=== PATIENT | female | born 1990 | race Caucasian/White ===

== ENCOUNTER 2017-03-08 04:08 | Emergency (ER) | payer OTHER ==
--- NOTE | 2017-03-08 06:39 | ED NURSING NOTES ---
Clinical Report - Nurses [facility] [address] [place] [address] 03/08/2017 4:09 Patient: SCOTT MCCAIN TRIAGE Triage time 04:16. Acuity: LEVEL 3. Chief Complaint: SHORTNESS OF BREATH and "ASTHMA ATTACK" and COUGH. 04:22. Alert. SEPSIS SCREEN: Sepsis Screen. Negative (no infection suspected/documented). --04:23 Rob Menjivar R.N. 04:16 03/08/17. BP: 134/82. HR: 94. RR: 18. O2 saturation: 94% on room air. Temp: 98.5 F (oral). Pain level now: 0/10. --04:23 Rob Menjivar R.N. Weight: 68 kg stated. Height/Length: 70 inches Per Patient. BMI: 21.5. --04:21 Rob Menjivar R.N. Medications Albuterol Sulfate Inhalation 1 unit dose, PRN. Ventolin HFA Inhalation 2 puffs, as needed. --04:19 Rob Menjivar R.N. Medication/allergy information source: the patient. --04:23 Rob Menjivar R.N. Allergies Bactrim. --04:19 Rob Menjivar R.N. History Arrived by private vehicle. Historian: patient. Accompanied by friend. Primary physician (None). Onset. (2 days ago). ( Patient reports difficulty breathing for the last 2 days with worsening this AM). 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 PAST MEDICAL HX: Immunizations: up-to-date. Last normal menstrual period was 2 weeks ago. SOCIAL HX: Former smoker. No alcohol use or drug use. No infectious disease exposure. ABUSE ASSESSMENT: No report of abuse. FALL RISK ASSESSMENT: Fall risk assessment completed. No fall risk identified. NUTRITIONAL RISK ASSESSMENT: The nutritional risk assessment revealed no deficiencies. FUNCTIONAL ASSESSMENT: Functional assessment: no impairments noted. LEARNING NEEDS ASSESSMENT: The learning needs assessment revealed no barriers. SKIN INTEGRITY ASSESSMENT: Skin integrity risk assessment completed. No skin integrity risk identified. --04:23 Rob Menjivar R.N. PROBLEMS: Asthma. --04:20 Rob Menjivar R.N. ADDITIONAL SURGERIES: Cholecystectomy. . --04:20 Rob Menjivar R.N. Interventions ID band on patient. To treatment room. --04:23 Rob Menjivar R.N. PHYSICAL ASSESSMENT 04:23. Ambulatory to room. GENERAL / NEURO / PSYCH: Alert. Oriented X 4. HEENT: Mucous membranes are pink. RESPIRATORY: Mild respiratory distress. The patient can speak in full sentences. Cough. Expiratory and inspiratory bilateral wheezes diffusely. SKIN: Skin is warm and dry. Normal skin turgor. --04:23 Rob Menjivar R.N. NURSING PROGRESS NOTES 04:23. Head of bed elevated. Two patient identifiers checked. Call light placed in reach. Bed placed in lowest position. Brakes of bed on. --04:23 Rob Menjivar R.N. 04:24 03/08/2017 Duoneb (Ipratropium-Albuterol) Neb TX 1 unit dose given. Given by the respiratory therapist. Allergies verified and confirmed 5 rights. --04:24 Rob Menjivar R.N. 04:24 RT with pt for eval and breathing treatment. --04:32 Rob Menjivar R.N. 04:51. Oxygen administered by nasal cannula at 2 liters (by Syed from RT). --05:01 Rob Menjivar R.N. 04:37 03/08/2017 Prednisone PO 40 mg given. Allergies verified and confirmed 5 rights. --05:02 Rob Menjivar R.N. 05:27 03/08/17. BP: 131/86. HR: 80. RR: 19. O2 saturation: 95% on nasal cannula at 2 liters/minute. --05:29 Rob Menjivar R.N. The patient is sleeping. SKIN: Skin is warm and dry. --05:29 Rob Menjivar R.N. 05:45 RT with pt for additional breathing treatment. --05:46 Rob Menjivar R.N. 05:46 03/08/2017 Albuterol Neb TX 2 unit dose given. Given by the respiratory therapist. Allergies verified and confirmed 5 rights. --05:48 Rob Menjivar R.N. 06:18. Patient transported to radiology by stretcher with tech. --06:18 Rob Menjivar R.N. 07:08. The patient is calm and resting quietly. RESPIRATORY: No respiratory distress. SKIN: Skin is warm and dry. Skin color within normal limits. --07:14 Rob Menjivar R.N. DISPOSITION / DISCHARGE <<STRICKEN ENTRY-- Condition at departure: improved and stable. No learning barriers present. Patient verbalized understanding. Written instructions provided in Polish. Transferred to [facility]. Patient's personal items include, Other belongings; items were placed in belongings bag and transported with the patient. She did not have glasses, contacts, dentures or a hearing aid. FALL RISK ASSESSMENT: Fall risk assessment completed. No fall risk identified. --06:35 Rob Menjivar R.N. --END STRIKE>> Charted On Wrong Patient --06:35 Rob Menjivar R.N. <<PSYCHIATRICKEN ENTRY-- 06:31 03/08/17. BP: 111/84. HR: 57. RR: 15. O2 saturation: 96% on nasal cannula at 2 liters/minute. Pain level now: 11/06. --06:35 Rob eMnjivar R.N. --END STRIKE>> Charted on wrong patient. --06:36 Rob Menjivar R.N. Departure time: 07:10. Condition at departure: improved and stable. ( Discharge instructions reviewed by Yancy GONZÁLES). No learning barriers present. Discharge instructions provided and reviewed with the patient. Patient verbalized understanding. Written instructions provided in Polish. The patient was discharged home and accompanied by parent. She left the Emergency Department ambulatory and via private vehicle. Family member driving. FALL RISK ASSESSMENT: Fall risk assessment completed. No fall risk identified. --07:14 Rob Menjivar R.N. 06:51 03/08/17. BP: 120/72. HR: 79. RR: 19. O2 saturation: 94% on room air. Pain level now: 010. --07:14 Rob Menjivar R.N. Locked/Released at 03/08/2017 7:14 by Rob Menjivar R.N.
--- NOTE | 2017-03-08 06:39 | ED CLINICAL REPORT ---
Clinical Report - Physicians/Mid Levels [facility] [address] [address] 03/08/2017 4:09 Patient: SCOTT MCCAIN Time Seen: 04:18; initial patient contact. Arrived- By private vehicle. Historian- patient. HISTORY OF PRESENT ILLNESS Chief Complaint: DYSPNEA and HISTORY OF ASTHMA. This started about 2 days ago and is still present (worse since a few hours ago). The dyspnea is described as moderate. She has not had worsening of dyspnea with walking or exertion. No improvement of dyspnea with rest. The patient has had a cough and wheezing. No sputum production, fever, sweating episodes or chills. No chest pain or discomfort, calf pain, foot swelling or anxiety. No palpitations. Similar symptoms previously: Many times. Recent medical care: The patient was seen recently at another facility in the emergency department. ( ~ 2 weeks ago for exacerbation). REVIEW OF SYSTEMS No nasal discharge, sinus drainage, nausea or vomiting. All systems otherwise negative, except as recorded above. PAST HISTORY Asthma. SURGERIES: Cholecystectomy. . SOCIAL HISTORY Former smoker. No alcohol use or drug use. ADDITIONAL NOTES The nursing notes have been reviewed. PHYSICAL EXAM Vital Signs: 03/08/2017 04:16 BP: 134/82. HR: 94. RR: 18. O2 saturation: 94%. Temp: 98.5 F. Pain level now: 0/10. Have been reviewed. Blood pressure normal. Heart rate normal. Respiratory rate normal. Temperature normal. Oxygen saturation low. Appearance: Alert. No acute distress. Eyes: Eyes normal inspection. ENT: Pharynx normal. Neck: Normal inspection. CVS: Normal heart rate and rhythm. Heart sounds normal. Respiratory: Mild respiratory distress with accessory muscle use and retractions. Mildly prolonged expirations. Mildly decreased air movement diffusely over both lungs. Expiratory moderate bilateral wheezes diffusely. Skin: Skin warm and dry. Normal skin color. No rash. Extremities: No calf tenderness. No lower extremity edema. Neuro: Oriented X 3. LABS, X-RAYS, AND EKG Chest X-ray: No acute disease. Normal lung markings present. Normal heart size. Mediastinum normal. Great vessels normal. No infiltrate. Views: PA and lateral. Technique: good. The X-rays were independently viewed by me and interpreted contemporaneously by me. Prior films were not available for comparison. PROGRESS AND PROCEDURES Course of Care: 03/08/2017 06:40 O2 saturation: 98%. Vital Signs: have been reviewed. Oxygen saturation normal. Disposition: Discharged home in good and improved condition. Condition: good. CLINICAL IMPRESSION Moderate persistent asthma with an acute exacerbation. No status asthmaticus, pneumonia, hypoxemia or acute respiratory failure. INSTRUCTIONS Avoid tobacco smoke. Your Current Medications: CONTINUE TAKING THE FOLLOWING MEDICATIONS: Albuterol Sulfate Inhalation : 1 unit dose PRN. Ventolin HFA Inhalation : 2 puffs, prn. Prescription Medications: Ventolin HFA oral inhaler: inhale 2 puffs every 4 hours as needed for wheezing, difficulty breathing or shortness of breath. No refill. Substitution is not permissible. Prednisone 10 mg tablets: take 4 tablets every day for 5 days ; then take 2 tablets every day for 3 days ; then take 1 tablet every day for 2 days. Dispense sufficient quantity. No refills. Follow-up: Follow up with your doctor in about two days. Call for an appointment. Screening today revealed the patient's blood pressure to be in the pre-hypertensive range. The patient should follow up with a primary care provider for blood pressure management. (Electronically signed by Varinder Caro Dr. 03/08/2017 6:42)
--- NOTE | 2017-03-08 06:39 | ED ORDER SUMMARY ---
..... Patient: SCOTT MCCAIN OrderSheet [facility] VisitID: [id number] [address] [place] [address] 26y, F Registration Date/Time: 03/08/2017 ORDER SHEET Weight: 68.0 kg (stated) Allergies: Bactrim GENERAL ORDERS: Chest 2V Urgent (06:07 03/08/2017 Massimo Lucio) (Ack 6:13 [facility] ER Offset Press Assistant) (6:23 RFay) MEDICATION ORDERS: DuoNeb Neb Tx 1 unit dose (NOW) (04:23 03/08/2017 Massimo Lucio) (4:24 JQuivey R.N.) Prednisone PO 40 mg (NOW) (04:23 03/08/2017 Massimo Lucio) (Ack 4:24 JQuivey R.N.) (5:02 JQuivey R.N.) Albuterol Neb Tx 2 unit doses (NOW, HHN) (05:47 03/08/2017 JQuivey R.N. verbal order read back to Massimo Lucio) (5:48 JQuivey R.N.) Albuterol Neb Tx 5 mg (NOW) (05:47 03/08/2017 Massimo Lucio) (Cancelled: Physician Order5:47 Massimo Lucio) IV FLUIDS: ORDER SHEET NOTES: [Electronically signed by Varinder Caro Dr. (06:42 03/08/2017)] [Electronically signed by Rob Menjviar R.N. (07:14 03/08/2017)] [Electronically locked/signed by Rob Menjivar R.N. (07:14 03/08/2017)]
--- NOTE | 2017-03-08 06:39 | ED ORDER SUMMARY ---
..... Patient: SCOTT MCCAIN OrderSheet [facility] VisitID: [id number] [address] [place] [address] 26y, F Registration Date/Time: 03/08/2017 ORDER SHEET Weight: 68.0 kg (stated) Allergies: Bactrim GENERAL ORDERS: Chest 2V Urgent (06:07 03/08/2017 Massimo Lucio) (Ack 6:13 [facility] ER Senior Bi Architect) (6:23 RFay) MEDICATION ORDERS: DuoNeb Neb Tx 1 unit dose (NOW) (04:23 03/08/2017 Massimo Lucio) (4:24 JQuivey R.N.) Prednisone PO 40 mg (NOW) (04:23 03/08/2017 Massimo Lucio) (Ack 4:24 JQuivey R.N.) (5:02 JQuivey R.N.) Albuterol Neb Tx 2 unit doses (NOW, HHN) (05:47 03/08/2017 JQuivey R.N. verbal order read back to Massimo Lucio) (5:48 JQuivey R.N.) Albuterol Neb Tx 5 mg (NOW) (05:47 03/08/2017 Massimo Lucio) (Cancelled: Physician Order5:47 Massimo Lucio) IV FLUIDS: ORDER SHEET NOTES: [Electronically signed by Varinder Caro Dr. (06:42 03/08/2017)] [Electronically signed by Rob Menjivar R.N. (07:14 03/08/2017)] [Electronically locked/signed by Rob Menjivar R.N. (07:14 03/08/2017)]
--- NOTE | 2017-03-08 06:39 | ED NURSING NOTES ---
Clinical Report - Nurses [facility] [address] [place] [address] 03/08/2017 4:09 Patient: SCOTT MCCAIN TRIAGE Triage time 04:16. Acuity: LEVEL 3. Chief Complaint: SHORTNESS OF BREATH and "ASTHMA ATTACK" and COUGH. 04:22. Alert. SEPSIS SCREEN: Sepsis Screen. Negative (no infection suspected/documented). --04:23 Rob Menjivar R.N. 04:16 03/08/17. BP: 134/82. HR: 94. RR: 18. O2 saturation: 94% on room air. Temp: 98.5 F (oral). Pain level now: 0/10. --04:23 Rob Menjivar R.N. Weight: 68 kg stated. Height/Length: 70 inches Per Patient. BMI: 21.5. --04:21 Rob Menjivar R.N. Medications Albuterol Sulfate Inhalation 1 unit dose, PRN. Ventolin HFA Inhalation 2 puffs, as needed. --04:19 Rob Menjivar R.N. Medication/allergy information source: the patient. --04:23 Rob Menjivar R.N. Allergies Bactrim. --04:19 Rob Menjivar R.N. History Arrived by private vehicle. Historian: patient. Accompanied by friend. Primary physician (None). Onset. (2 days ago). ( Patient reports difficulty breathing for the last 2 days with worsening this AM). 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 PAST MEDICAL HX: Immunizations: up-to-date. Last normal menstrual period was 2 weeks ago. SOCIAL HX: Former smoker. No alcohol use or drug use. No infectious disease exposure. ABUSE ASSESSMENT: No report of abuse. FALL RISK ASSESSMENT: Fall risk assessment completed. No fall risk identified. NUTRITIONAL RISK ASSESSMENT: The nutritional risk assessment revealed no deficiencies. FUNCTIONAL ASSESSMENT: Functional assessment: no impairments noted. LEARNING NEEDS ASSESSMENT: The learning needs assessment revealed no barriers. SKIN INTEGRITY ASSESSMENT: Skin integrity risk assessment completed. No skin integrity risk identified. --04:23 Rob Menjivar R.N. PROBLEMS: Asthma. --04:20 Rob Menjivar R.N. ADDITIONAL SURGERIES: Cholecystectomy. . --04:20 Rob Menjivar R.N. Interventions ID band on patient. To treatment room. --04:23 Rob Menjivar R.N. PHYSICAL ASSESSMENT 04:23. Ambulatory to room. GENERAL / NEURO / PSYCH: Alert. Oriented X 4. HEENT: Mucous membranes are pink. RESPIRATORY: Mild respiratory distress. The patient can speak in full sentences. Cough. Expiratory and inspiratory bilateral wheezes diffusely. SKIN: Skin is warm and dry. Normal skin turgor. --04:23 Rob Menjivar R.N. NURSING PROGRESS NOTES 04:23. Head of bed elevated. Two patient identifiers checked. Call light placed in reach. Bed placed in lowest position. Brakes of bed on. --04:23 Rob Menjivar R.N. 04:24 03/08/2017 Duoneb (Ipratropium-Albuterol) Neb TX 1 unit dose given. Given by the respiratory therapist. Allergies verified and confirmed 5 rights. --04:24 Rob Menjivar R.N. 04:24 RT with pt for eval and breathing treatment. --04:32 Rob Menjivar R.N. 04:51. Oxygen administered by nasal cannula at 2 liters (by Syed from RT). --05:01 Rob Menjivar R.N. 04:37 03/08/2017 Prednisone PO 40 mg given. Allergies verified and confirmed 5 rights. --05:02 Rob Menjivar R.N. 05:27 03/08/17. BP: 131/86. HR: 80. RR: 19. O2 saturation: 95% on nasal cannula at 2 liters/minute. --05:29 Rob Menjivar R.N. The patient is sleeping. SKIN: Skin is warm and dry. --05:29 Rob Menjivar R.N. 05:45 RT with pt for additional breathing treatment. --05:46 Rob Menjivar R.N. 05:46 03/08/2017 Albuterol Neb TX 2 unit dose given. Given by the respiratory therapist. Allergies verified and confirmed 5 rights. --05:48 Rob Menjivar R.N. 06:18. Patient transported to radiology by stretcher with tech. --06:18 Rob Menjivar R.N. 07:08. The patient is calm and resting quietly. RESPIRATORY: No respiratory distress. SKIN: Skin is warm and dry. Skin color within normal limits. --07:14 Rob Menjivar R.N. DISPOSITION / DISCHARGE <<STRICKEN ENTRY-- Condition at departure: improved and stable. No learning barriers present. Patient verbalized understanding. Written instructions provided in Japanese. Transferred to [facility]. Patient's personal items include, Other belongings; items were placed in belongings bag and transported with the patient. She did not have glasses, contacts, dentures or a hearing aid. FALL RISK ASSESSMENT: Fall risk assessment completed. No fall risk identified. --06:35 Rob Menjivar R.N. --END STRIKE>> Charted On Wrong Patient --06:35 Rob Menjivar R.N. [facility]-- 06:31 03/08/17. BP: 111/84. HR: 57. RR: 15. O2 saturation: 96% on nasal cannula at 2 liters/minute. Pain level now: 11/06. --06:35 Rob Menjivar R.N. --END STRIKE>> Charted on wrong patient. --06:36 Rob Menjivar R.N. Departure time: 07:10. Condition at departure: improved and stable. ( Discharge instructions reviewed by Yancy GONZÁLES). No learning barriers present. Discharge instructions provided and reviewed with the patient. Patient verbalized understanding. Written instructions provided in Japanese. The patient was discharged home and accompanied by parent. She left the Emergency Department ambulatory and via private vehicle. Family member driving. FALL RISK ASSESSMENT: Fall risk assessment completed. No fall risk identified. --07:14 Rob Menjivar R.N. 06:51 03/08/17. BP: 120/72. HR: 79. RR: 19. O2 saturation: 94% on room air. Pain level now: 010. --07:14 Rob Menjivar R.N. Locked/Released at 03/08/2017 7:14 by Rob Menjivar R.N.
--- NOTE | 2017-03-08 07:04 | DIAGNOSTIC IMAGING REPORT ---
PROCEDURE: XR CHEST 2 VIEW INDICATION: COUGH TECHNIQUE: Two views COMPARISON: None. FINDINGS: The cardiomediastinal contour is normal. No central venous congestion. The pulmonary arteries are prominent. Coarse interstitial markings. The lungs hyperinflated but otherwise clear without focal consolidation, pleural effusion or pneumothorax. The osseous structures are intact. IMPRESSION: 1. No acute disease. 2. Findings of asthma/emphysema.
--- NOTE | 2017-03-08 07:15 | ED MED RECONCILIATION SUMMARY ---
Patient: SCOTT MCCAIN Medication Reconciliation Report [facility] VisitID: [id number] [address] [place] [address] 26y, F Registration Date/Time: 03/08/2017 Weight: 68.0 kg Height/Length: 70 in. BMI: 21.5 ALLERGIES: Bactrim The patient's Home Medications are listed below: CONTINUE TAKING THE FOLLOWING MEDICATIONS: Albuterol Sulfate Inhalation 1 unit dose, PRN Ventolin HFA Inhalation 2 puffs The source(s) of the original Home Medication information: patient The following Medications were given to the patient in the Emergency Department: Duoneb [Neb Tx] Neb TX 1 unit dose, administered: 03/08/2017 4:24:00 AM Prednisone [PO] PO 40 mg, administered: 03/08/2017 4:37:00 AM Albuterol [Neb Tx] Neb TX 2 unit dose, administered: 03/08/2017 5:46:00 AM The following Medications were prescribed to the patient: Ventolin HFA oral inhaler: inhale 2 puffs every 4 hours as needed for wheezing, difficulty breathing or shortness of breath. No refill. Substitution is not permissible. -- Varinder Caro Dr. Prednisone 10 mg tablets: take 4 tablets every day for 5 days ; then take 2 tablets every day for 3 days ; then take 1 tablet every day for 2 days. Dispense sufficient quantity. No refills. -- Varinder Caro Dr.
--- NOTE | 2017-03-08 07:15 | ED MAR SUMMARY ---
..... Medication Administration Record [facility] [address] [place] [address] Patient: SCOTT MCCAIN Visit ID: [id number] 26y, F Weight: 68.0 kg Height/Length: 70 in BMI: 21.5 ALLERGIES: Bactrim Given 04:24 03/08/2017 Rob Menjivar, R.N. Medication Administered: DUONEB [NEB TX] (IPRATROPIUM-ALBUTEROL), Dose: 1 unit dose Neb TX. Medication Ordered: DuoNeb Neb Tx 1 unit dose (NOW). Given 04:37 03/08/2017 Rob Menjivar, R.N. Medication Administered: PREDNISONE [PO], Dose: 40 mg PO. Medication Ordered: Prednisone PO 40 mg (NOW). Given 05:46 03/08/2017 Rob Menjivar, R.N. Medication Administered: ALBUTEROL [NEB TX], Dose: 2 unit dose Neb TX. Medication Ordered: Albuterol Neb Tx 2 unit doses (NOW, N).
--- NOTE | 2017-03-08 07:15 | ED DISCHARGE INSTRUCTIONS ---
Patient: SCOTT MCCAIN General Instructions [facility] VisitID: [id number] [place] [address] 26y, F Registration Date/Time: 03/08/2017 Moderate persistent asthma with an acute exacerbation. No status asthmaticus, pneumonia, hypoxemia or acute respiratory failure. INSTRUCTIONS Avoid tobacco smoke. Your Current Medications: CONTINUE TAKING THE FOLLOWING MEDICATIONS: Albuterol Sulfate Inhalation : 1 unit dose PRN. Ventolin HFA Inhalation : 2 puffs, prn. Prescription Medications: Ventolin HFA oral inhaler: inhale 2 puffs every 4 hours as needed for wheezing, difficulty breathing or shortness of breath. No refill. Substitution is not permissible. Prednisone 10 mg tablets: take 4 tablets every day for 5 days ; then take 2 tablets every day for 3 days ; then take 1 tablet every day for 2 days. Dispense sufficient quantity. No refills. Follow-up: Follow up with your doctor in about two days. Call for an appointment. Screening today revealed the patient's blood pressure to be in the pre-hypertensive range. The patient should follow up with a primary care provider for blood pressure management. ADDITIONAL INFORMATION Asthma [Adult] Asthma is a disease where the small air passages within the lung go into spasm and restrict the flow of air. Inflammation and swelling of the airways cause further restriction. During an acute asthma attack, these factors cause difficulty breathing, wheezing, cough and chest tightness. An asthma attack can be triggered by many things. Common triggers include the common cold, bronchitis, pneumonia, irritants such as smoke or pullutants in the air, emotional upset and heavy exercise. Inmany adults with asthma, allergies todust, mold, pollen and animal dander can cause an asthma attack. Skipping doses of daily asthma medicine can also bring on an asthma attack. Asthma can be controlled with proper medicines and decreased exposure to known allergens. Home Care: Take prescribed medicine exactly at the times advised. If you have a hand-held inhaler or aerosol breathing medicine, do not use it more than once every four hours, unless told to do so. (If you need this medicine more than every four hours, you may need to return to the Emergency Room.) If prescribed an antibiotic or prednisone, take all of the medicine even if you are feeling better after a few days. Do not smoke. Avoid being exposed to the smoke of others. Some persons with asthma have worsening of their symptoms when they take aspirin and non-steroidal medicines like ibuprofen (Motrin, Advil) and naproxen (Aleve, Naprosyn). Talk to your doctor if you think this may apply to you. Acetaminophen (Tylenol)should be safe to use. Follow Up with your doctor, or as advised by our staff. Always bring all of your current medicines with you for your doctor to see. If you do not already have one, talk to your doctor about developing a personalized "Asthma Action Plan." [NOTE: A pneumococcal vaccine and yearly flu shot (every fall) are recommended. Ask your doctor about this.] Get Prompt Medical Attention if any of the following occur: Increased wheezing or shortness of breath Need to use your inhalers more often than usual without relief Fever of 100.4F (38C) or higher, or as directed by your healthcare provider Coughing up lots of dark-colored or bloody sputum (mucus) Chest pain with each breath You do not start to improve within 24 hours Call 911 If Any Of The Following Occur : Trouble walking or talking because of shortness of breath If you use a peak flow meter andyou are still in the red zone (less than 50 percent) 15 minutes after using inhaler medication Lips or fingernails turning diaz or blue Albuterol Sulfate Pressurized inhalation, suspension What is this medicine? ALBUTEROL (al BYOO ter ole) is a bronchodilator. It helps open up the airways in your lungs to make it easier to breathe. This medicine is used to treat and to prevent bronchospasm. How should I use this medicine? This medicine is for inhalation through the mouth. Follow the directions on your prescription label. Take your medicine at regular intervals. Do not use more often than directed. Make sure that you are using your inhaler correctly. Ask you doctor or health care provider if you have any questions. Talk to your engineer systems regarding the use of this medicine in children. Special care may be needed. What side effects may I notice from receiving this medicine? Side effects that you should report to your doctor or health acute care physician as soon as possible: allergic reactions like skin rash, itching or hives, swelling of the face, lips, or tongue breathing problems chest pain feeling faint or lightheaded, falls high blood pressure irregular heartbeat fever muscle cramps or weakness pain, tingling, numbness in the hands or feet vomiting Side effects that usually do not require medical attention (report to your doctor or health acute care physician if they continue or are bothersome): cough difficulty sleeping headache nervousness or trembling stomach upset stuffy or runny nose throat irritation unusual taste What may interact with this medicine? anti-infectives like chloroquine and pentamidine caffeine cisapride diuretics medicines for colds medicines for depression or for emotional or psychotic conditions medicines for weight loss including some herbal products methadone some antibiotics like clarithromycin, erythromycin, levofloxacin, and linezolid some heart medicines steroid hormones like dexamethasone, cortisone, hydrocortisone theophylline thyroid hormones What if I miss a dose? If you miss a dose, use it as soon as you can. If it is almost time for your next dose, use only that dose. Do not use double or extra doses. Where should I keep my medicine? Keep out of the reach of children. Store at room temperature between 15 and 30 degrees C (59 and 86 degrees F). The contents are under pressure and may burst when exposed to heat or flame. Do not freeze. This medicine does not work as well if it is too cold. Throw away any unused medicine after the expiration date. Inhalers need to be thrown away after the labeled number of puffs have been used or by the expiration date; whichever comes first. Ventolin HFA should be thrown away 12 months after removing from foil pouch. Check the instructions that come with your medicine. What should I tell my health care provider before I take this medicine? They need to know if you have any of the following conditions: diabetes heart disease or irregular heartbeat high blood pressure pheochromocytoma seizures thyroid disease an unusual or allergic reaction to albuterol, levalbuterol, sulfites, other medicines, foods, dyes, or preservatives or trying to get breast-feeding What should I watch for while using this medicine? Tell your doctor or health acute care physician if your symptoms do not improve. Do not use extra albuterol. If your asthma or bronchitis gets worse while you are using this medicine, call your doctor right away. If your mouth gets dry try chewing sugarless gum or sucking hard candy. Drink water as directed. Prednisone Oral tablet What is this medicine? PREDNISONE (PRED ni sone) is a corticosteroid. It is commonly used to treat inflammation of the skin, joints, lungs, and other organs. Common conditions treated include asthma, allergies, and arthritis. It is also used for other conditions, such as blood disorders and diseases of the adrenal glands. How should I use this medicine? Take this medicine by mouth with a glass of water. Follow the directions on the prescription label. Take this medicine with food. If you are taking this medicine once a day, take it in the morning. Do not take more medicine than you are told to take. Do not suddenly stop taking your medicine because you may develop a severe reaction. Your doctor will tell you how much medicine to take. If your doctor wants you to stop the medicine, the dose may be slowly lowered over time to avoid any side effects. Talk to your engineer systems regarding the use of this medicine in children. Special care may be needed. What side effects may I notice from receiving this medicine? Side effects that you should report to your doctor or health acute care physician as soon as possible: allergic reactions like skin rash, itching or hives, swelling of the face, lips, or tongue changes in emotions or moods changes in vision depressed mood eye pain fever or chills, cough, sore throat, pain or difficulty passing urine increased thirst swelling of ankles, feet Side effects that usually do not require medical attention (report to your doctor or health acute care physician if they continue or are bothersome): confusion, excitement, restlessness headache nausea, vomiting skin problems, acne, thin and shiny skin trouble sleeping weight gain What may interact with this medicine? Do not take this medicine with any of the following medications: metyrapone mifepristone This medicine may also interact with the following medications: aminoglutethimide amphotericin B aspirin and aspirin-like medicines barbiturates certain medicines for diabetes, like glipizide or glyburide cholestyramine cholinesterase inhibitors cyclosporine digoxin diuretics ephedrine female hormones, like estrogens and control pills isoniazid ketoconazole NSAIDS, medicines for pain and inflammation, like ibuprofen or naproxen phenytoin rifampin toxoids vaccines warfarin What if I miss a dose? If you miss a dose, take it as soon as you can. If it is almost time for your next dose, talk to your doctor or health acute care physician. You may need to miss a dose or take an extra dose. Do not take double or extra doses without advice. Where should I keep my medicine? Keep out of the reach of children. Store at room temperature between 15 and 30 degrees C (59 and 86 degrees F). Protect from light. Keep container tightly closed. Throw away any unused medicine after the expiration date. What should I tell my health care provider before I take this medicine? They need to know if you have any of these conditions: Deborah's syndrome diabetes glaucoma heart disease high blood pressure infection (especially a virus infection such as chickenpox, cold sores, or herpes) kidney disease liver disease mental illness myasthenia gravis osteoporosis seizures stomach or intestine problems thyroid disease an unusual or allergic reaction to lactose, prednisone, other medicines, foods, dyes, or preservatives or trying to get breast-feeding What should I watch for while using this medicine? Visit your doctor or health acute care physician for regular checks on your progress. If you are taking this medicine over a prolonged period, carry an identification card with your name and address, the type and dose of your medicine, and your doctor's name and address. This medicine may increase your risk of getting an infection. Tell your doctor or health acute care physician if you are around anyone with measles or chickenpox, or if you develop sores or blisters that do not heal properly. If you are going to have surgery, tell your doctor or health acute care physician that you have taken this medicine within the last twelve months. Ask your doctor or health acute care physician about your diet. You may need to lower the amount of salt you eat. This medicine may affect blood sugar levels. If you have diabetes, check with your doctor or health acute care physician before you change your diet or the dose of your diabetic medicine. You have been given the following additional information: Asthma, Acute (Adult) Albuterol Sulfate Pressurized inhalation, suspension Prednisone Oral tablet (Electronically signed by Varinder Caro Dr. 03/08/2017 6:42)
--- NOTE | 2017-03-08 07:15 | ED MED RECONCILIATION SUMMARY ---
Patient: SCOTT MCCAIN Medication Reconciliation Report [facility] VisitID: [id number] [address] [place] [address] 26y, F Registration Date/Time: 03/08/2017 Weight: 68.0 kg Height/Length: 70 in. BMI: 21.5 ALLERGIES: Bactrim The patient's Home Medications are listed below: CONTINUE TAKING THE FOLLOWING MEDICATIONS: Albuterol Sulfate Inhalation 1 unit dose, PRN Ventolin HFA Inhalation 2 puffs The source(s) of the original Home Medication information: patient The following Medications were given to the patient in the Emergency Department: Duoneb [Neb Tx] Neb TX 1 unit dose, administered: 03/08/2017 4:24:00 AM Prednisone [PO] PO 40 mg, administered: 03/08/2017 4:37:00 AM Albuterol [Neb Tx] Neb TX 2 unit dose, administered: 03/08/2017 5:46:00 AM The following Medications were prescribed to the patient: Ventolin HFA oral inhaler: inhale 2 puffs every 4 hours as needed for wheezing, difficulty breathing or shortness of breath. No refill. Substitution is not permissible. -- Varinder Caro Dr. Prednisone 10 mg tablets: take 4 tablets every day for 5 days ; then take 2 tablets every day for 3 days ; then take 1 tablet every day for 2 days. Dispense sufficient quantity. No refills. -- Varinder Caro Dr.
--- NOTE | 2017-03-08 07:15 | ED MAR SUMMARY ---
..... Medication Administration Record [facility] [address] [address] Patient: SCOTT MCCAIN Visit ID: [id number] 26y, F Weight: 68.0 kg Height/Length: 70 in BMI: 21.5 ALLERGIES: Bactrim Given 04:24 03/08/2017 Rob Menjivar, R.N. Medication Administered: DUONEB [NEB TX] (IPRATROPIUM-ALBUTEROL), Dose: 1 unit dose Neb TX. Medication Ordered: DuoNeb Neb Tx 1 unit dose (NOW). Given 04:37 03/08/2017 Rob Menjivar, R.N. Medication Administered: PREDNISONE [PO], Dose: 40 mg PO. Medication Ordered: Prednisone PO 40 mg (NOW). Given 05:46 03/08/2017 Rob Menjivar, R.N. Medication Administered: ALBUTEROL [NEB TX], Dose: 2 unit dose Neb TX. Medication Ordered: Albuterol Neb Tx 2 unit doses (NOW, N).
--- NOTE | 2017-03-08 07:15 | ED DISCHARGE INSTRUCTIONS ---
Patient: SCOTT MCCAIN General Instructions [facility] VisitID: [id number] [place] [address] 26y, F Registration Date/Time: 03/08/2017 Moderate persistent asthma with an acute exacerbation. No status asthmaticus, pneumonia, hypoxemia or acute respiratory failure. INSTRUCTIONS Avoid tobacco smoke. Your Current Medications: CONTINUE TAKING THE FOLLOWING MEDICATIONS: Albuterol Sulfate Inhalation : 1 unit dose PRN. Ventolin HFA Inhalation : 2 puffs, prn. Prescription Medications: Ventolin HFA oral inhaler: inhale 2 puffs every 4 hours as needed for wheezing, difficulty breathing or shortness of breath. No refill. Substitution is not permissible. Prednisone 10 mg tablets: take 4 tablets every day for 5 days ; then take 2 tablets every day for 3 days ; then take 1 tablet every day for 2 days. Dispense sufficient quantity. No refills. Follow-up: Follow up with your doctor in about two days. Call for an appointment. Screening today revealed the patient's blood pressure to be in the pre-hypertensive range. The patient should follow up with a primary care provider for blood pressure management. ADDITIONAL INFORMATION Asthma [Adult] Asthma is a disease where the small air passages within the lung go into spasm and restrict the flow of air. Inflammation and swelling of the airways cause further restriction. During an acute asthma attack, these factors cause difficulty breathing, wheezing, cough and chest tightness. An asthma attack can be triggered by many things. Common triggers include the common cold, bronchitis, pneumonia, irritants such as smoke or pullutants in the air, emotional upset and heavy exercise. Inmany adults with asthma, allergies todust, mold, pollen and animal dander can cause an asthma attack. Skipping doses of daily asthma medicine can also bring on an asthma attack. Asthma can be controlled with proper medicines and decreased exposure to known allergens. Home Care: Take prescribed medicine exactly at the times advised. If you have a hand-held inhaler or aerosol breathing medicine, do not use it more than once every four hours, unless told to do so. (If you need this medicine more than every four hours, you may need to return to the Emergency Room.) If prescribed an antibiotic or prednisone, take all of the medicine even if you are feeling better after a few days. Do not smoke. Avoid being exposed to the smoke of others. Some persons with asthma have worsening of their symptoms when they take aspirin and non-steroidal medicines like ibuprofen (Motrin, Advil) and naproxen (Aleve, Naprosyn). Talk to your doctor if you think this may apply to you. Acetaminophen (Tylenol)should be safe to use. Follow Up with your doctor, or as advised by our staff. Always bring all of your current medicines with you for your doctor to see. If you do not already have one, talk to your doctor about developing a personalized "Asthma Action Plan." [NOTE: A pneumococcal vaccine and yearly flu shot (every fall) are recommended. Ask your doctor about this.] Get Prompt Medical Attention if any of the following occur: Increased wheezing or shortness of breath Need to use your inhalers more often than usual without relief Fever of 100.4F (38C) or higher, or as directed by your healthcare provider Coughing up lots of dark-colored or bloody sputum (mucus) Chest pain with each breath You do not start to improve within 24 hours Call 911 If Any Of The Following Occur : Trouble walking or talking because of shortness of breath If you use a peak flow meter andyou are still in the red zone (less than 50 percent) 15 minutes after using inhaler medication Lips or fingernails turning diaz or blue Albuterol Sulfate Pressurized inhalation, suspension What is this medicine? ALBUTEROL (al BYOO ter ole) is a bronchodilator. It helps open up the airways in your lungs to make it easier to breathe. This medicine is used to treat and to prevent bronchospasm. How should I use this medicine? This medicine is for inhalation through the mouth. Follow the directions on your prescription label. Take your medicine at regular intervals. Do not use more often than directed. Make sure that you are using your inhaler correctly. Ask you doctor or health care provider if you have any questions. Talk to your bus company manager regarding the use of this medicine in children. Special care may be needed. What side effects may I notice from receiving this medicine? Side effects that you should report to your doctor or health healthcare technician as soon as possible: allergic reactions like skin rash, itching or hives, swelling of the face, lips, or tongue breathing problems chest pain feeling faint or lightheaded, falls high blood pressure irregular heartbeat fever muscle cramps or weakness pain, tingling, numbness in the hands or feet vomiting Side effects that usually do not require medical attention (report to your doctor or health healthcare technician if they continue or are bothersome): cough difficulty sleeping headache nervousness or trembling stomach upset stuffy or runny nose throat irritation unusual taste What may interact with this medicine? anti-infectives like chloroquine and pentamidine caffeine cisapride diuretics medicines for colds medicines for depression or for emotional or psychotic conditions medicines for weight loss including some herbal products methadone some antibiotics like clarithromycin, erythromycin, levofloxacin, and linezolid some heart medicines steroid hormones like dexamethasone, cortisone, hydrocortisone theophylline thyroid hormones What if I miss a dose? If you miss a dose, use it as soon as you can. If it is almost time for your next dose, use only that dose. Do not use double or extra doses. Where should I keep my medicine? Keep out of the reach of children. Store at room temperature between 15 and 30 degrees C (59 and 86 degrees F). The contents are under pressure and may burst when exposed to heat or flame. Do not freeze. This medicine does not work as well if it is too cold. Throw away any unused medicine after the expiration date. Inhalers need to be thrown away after the labeled number of puffs have been used or by the expiration date; whichever comes first. Ventolin HFA should be thrown away 12 months after removing from foil pouch. Check the instructions that come with your medicine. What should I tell my health care provider before I take this medicine? They need to know if you have any of the following conditions: diabetes heart disease or irregular heartbeat high blood pressure pheochromocytoma seizures thyroid disease an unusual or allergic reaction to albuterol, levalbuterol, sulfites, other medicines, foods, dyes, or preservatives or trying to get breast-feeding What should I watch for while using this medicine? Tell your doctor or health healthcare technician if your symptoms do not improve. Do not use extra albuterol. If your asthma or bronchitis gets worse while you are using this medicine, call your doctor right away. If your mouth gets dry try chewing sugarless gum or sucking hard candy. Drink water as directed. Prednisone Oral tablet What is this medicine? PREDNISONE (PRED ni sone) is a corticosteroid. It is commonly used to treat inflammation of the skin, joints, lungs, and other organs. Common conditions treated include asthma, allergies, and arthritis. It is also used for other conditions, such as blood disorders and diseases of the adrenal glands. How should I use this medicine? Take this medicine by mouth with a glass of water. Follow the directions on the prescription label. Take this medicine with food. If you are taking this medicine once a day, take it in the morning. Do not take more medicine than you are told to take. Do not suddenly stop taking your medicine because you may develop a severe reaction. Your doctor will tell you how much medicine to take. If your doctor wants you to stop the medicine, the dose may be slowly lowered over time to avoid any side effects. Talk to your bus company manager regarding the use of this medicine in children. Special care may be needed. What side effects may I notice from receiving this medicine? Side effects that you should report to your doctor or health healthcare technician as soon as possible: allergic reactions like skin rash, itching or hives, swelling of the face, lips, or tongue changes in emotions or moods changes in vision depressed mood eye pain fever or chills, cough, sore throat, pain or difficulty passing urine increased thirst swelling of ankles, feet Side effects that usually do not require medical attention (report to your doctor or health healthcare technician if they continue or are bothersome): confusion, excitement, restlessness headache nausea, vomiting skin problems, acne, thin and shiny skin trouble sleeping weight gain What may interact with this medicine? Do not take this medicine with any of the following medications: metyrapone mifepristone This medicine may also interact with the following medications: aminoglutethimide amphotericin B aspirin and aspirin-like medicines barbiturates certain medicines for diabetes, like glipizide or glyburide cholestyramine cholinesterase inhibitors cyclosporine digoxin diuretics ephedrine female hormones, like estrogens and control pills isoniazid ketoconazole NSAIDS, medicines for pain and inflammation, like ibuprofen or naproxen phenytoin rifampin toxoids vaccines warfarin What if I miss a dose? If you miss a dose, take it as soon as you can. If it is almost time for your next dose, talk to your doctor or health healthcare technician. You may need to miss a dose or take an extra dose. Do not take double or extra doses without advice. Where should I keep my medicine? Keep out of the reach of children. Store at room temperature between 15 and 30 degrees C (59 and 86 degrees F). Protect from light. Keep container tightly closed. Throw away any unused medicine after the expiration date. What should I tell my health care provider before I take this medicine? They need to know if you have any of these conditions: Deborah's syndrome diabetes glaucoma heart disease high blood pressure infection (especially a virus infection such as chickenpox, cold sores, or herpes) kidney disease liver disease mental illness myasthenia gravis osteoporosis seizures stomach or intestine problems thyroid disease an unusual or allergic reaction to lactose, prednisone, other medicines, foods, dyes, or preservatives or trying to get breast-feeding What should I watch for while using this medicine? Visit your doctor or health healthcare technician for regular checks on your progress. If you are taking this medicine over a prolonged period, carry an identification card with your name and address, the type and dose of your medicine, and your doctor's name and address. This medicine may increase your risk of getting an infection. Tell your doctor or health healthcare technician if you are around anyone with measles or chickenpox, or if you develop sores or blisters that do not heal properly. If you are going to have surgery, tell your doctor or health healthcare technician that you have taken this medicine within the last twelve months. Ask your doctor or health healthcare technician about your diet. You may need to lower the amount of salt you eat. This medicine may affect blood sugar levels. If you have diabetes, check with your doctor or health healthcare technician before you change your diet or the dose of your diabetic medicine. You have been given the following additional information: Asthma, Acute (Adult) Albuterol Sulfate Pressurized inhalation, suspension Prednisone Oral tablet (Electronically signed by Varinder Caro Dr. 03/08/2017 6:42)
== END 2017-03-08 07:02 | disposition home or self-care (01) ==
LOC: ED SRH 04:08
DX: J45.41 Moderate persistent asthma with (acute) exacerbation (principal); Z79.899 Other long term (current) drug therapy; Z87.891 Personal history of nicotine dependence; Z88.8 Allergy status to other drugs, medicaments and biological substances